=== PATIENT | male | born 1955 | race American Indian/Alaskan Native ===

== ENCOUNTER 2016-06-27 06:58 | Day surgery (SDC) | payer MEDICARE ==
[2016-06-19 14:00] VITALS: BMI 35.1
[2016-06-27] MEDS ORDERED: Propofol 10 mg/ml Inj (20 ML) ONE (08:12)
[2016-06-27] MEDS ORDERED: Lactated Ringer's 1,000 ML IV SCH (08:43)
[2016-06-27 09:42] VITALS: BP 162/90; PULSE 65; RESP 16; TEMP 97.6; O2SAT 97
== END 2016-06-27 10:19 | disposition home or self-care (01) ==
LOC: ENDO 06:58
PROVIDERS: ATTEND Specialist
DX: Z12.11 Encounter for screening for malignant neoplasm of colon (principal); D12.4 Benign neoplasm of descending colon; K57.30 Diverticulosis of large intestine without perforation or abscess without bleeding; K64.8 Other hemorrhoids; E11.9 Type 2 diabetes mellitus without complications; I10 Essential (primary) hypertension
CPT/HCPCS: 45385; 82948; 88305; J2704; J3010; J7040; J7120

== ENCOUNTER 2018-06-19 09:59 | Outpatient (CLI) | payer MEDICARE | END 2018-06-19 10:00 | disposition home or self-care (01) | LOC: LAB 09:59 | DX: Z01.812 Encounter for preprocedural laboratory examination (principal); Z01.811 Encounter for preprocedural respiratory examination; Z01.810 Encounter for preprocedural cardiovascular examination ==

== ENCOUNTER 2018-07-16 06:07 | Day surgery (SDC) | payer MEDICARE ==
[2018-07-03 10:32] VITALS: BMI 35.4
[2018-07-16] MEDS ORDERED: Lidocaine 1% w Epi 1:100,000 Inj ONE (07:18)
[2018-07-16] MEDS ORDERED: Propofol 10 mg/ml Inj (20 ML) ONE (07:39)
[2018-07-16] MEDS ORDERED: Tetracaine 0.5% Ophth 2 ML BOTTLE ONE (07:42)
[2018-07-16] MEDS ORDERED: Povidone Iodine Ophthalmic 5% Soln ONE (07:45)
[2018-07-16] MEDS ORDERED: Ophthalmic Irrigation, Soln ONE (07:47)
[2018-07-16] MEDS ORDERED: Lactated Ringer's 1,000 ML IV SCH ×2 (08:15→08:30)
[2018-07-16 10:00] VITALS: RESP 16; TEMP 97.9; O2SAT 99
[2018-07-16 10:01] VITALS: BP 140/78; PULSE 66
--- NOTE | 2018-07-16 17:11 | OP ---
PROCEDURE DATE: 07/16/2018 PREOPERATIVE DIAGNOSIS: Right eyelid chalazion. POSTOPERATIVE DIAGNOSIS: Right eyelid chalazion. PROCEDURE: Excision of right eyelid chalazion. SURGEON: Shad Minor DO TYPE OF ANESTHESIA: Laryngeal mask airway. COMPLICATIONS: None. CONDITION: The patient tolerated the procedure well. INDICATIONS: This patient was evaluated by Department of Otolaryngology for history of right eyelid chalazion that persisted. Discussed risks, benefits and alternatives of removal. The patient was agreeable. DESCRIPTION OF PROCEDURE: After informed consent was obtained from the patient, the patient clearly understood the risks versus benefits versus alternatives of performing the procedure including of bleeding, infection, scarring, eyelid drooping. He was agreeable to above and was transported back to operative suite. He was adequately anesthetized by the Department of Anesthesia via laryngeal mask airway. Eye was prepped with Betadine solution. Topical tetracaine was placed in the eye. Next, after prepping and draping in the usual sterile fashion, a chalazion clamp was used to attach to the eyelid and invert the lid. An incision was made in the upper eyelid conjunctiva with [place] blade. Mucoid solution was expelled from the cyst. A curette was then used to remove the remaining wall of the cyst in the upper eyelid. The eyelid was irrigated with DSS and the lid was reverted back to normal position. The patient tolerated the procedure well, was transported from operative suite after extubation to recovery in stable condition. Shad Minor DO
== END 2018-07-16 10:00 | disposition home or self-care (01) ==
LOC: SDS 06:07
PROVIDERS: ATTEND Otolaryngology
DX: H00.11 Chalazion right upper eyelid (principal)
CPT/HCPCS: 67800; 82948; 88304; J2001; J2704; J3010; J7120 ×2